=== PATIENT | female | born 1945 | race Caucasian/White ===

== ENCOUNTER 2016-10-10 07:02 | Inpatient (IN) | payer OTHER, BC ==
[~2016-10-10] VITALS: Ht 160 cm; Wt 44.0 kg
[~2016-10-10 07:02] MED LIST: ASPIRIN EC325 MG PO
[2016-10-10 08:09] LABS: EOSINOPHIL (%) 0.4 % (0-5); HEMATOCRIT 40.7 % (36.0-46.0); IMMATURE GRANULOCYTE (%) 0.4 % (0.0-0.7); INSTRUMENT ABS NEUTROPHIL CT 6.8 K/uL; LYMPHOCYTE COUNT 1.1 K/uL (1.0-2.8); MCH 26.9 PG (29.0-34.0); MCHC 33.4 G/DL (30.0-36.0); MCV 80.4 FL (83-99); MEAN PLAT.VOLUME 9.4 uM^3 (9.5-12.4); MONOCYTE (%) 6.2 % (3-12); MONOCYTE COUNT 0.5 K/uL (0-0.8); NEUTROPHIL COUNT 6.8 K/uL (1.8-6.4); PLATELET COUNT 409 K/uL (156-360); RBC DIS.WIDTH-CV 13.4 % (11.8-14.6); RBC DIS.WIDTH-SD 39.1 % (39-53); RED BLOOD COUNT 5.06 M/uL (3.80-5.20); WHITE BLOOD COUNT 8.4 K/uL (4.1-10.2)
[2016-10-10 08:50] LABS: ANION GAP 7 MEQ/L (2-14); CHLORIDE 89 MEQ/L (99-109); GFR ESTIMATE (CALCULATED) > 59 mL/min/; GLUCOSE 106 mg/dL (70-99); POTASSIUM 4.5 MEQ/L (3.7-5.4); SAMPLE HEMOLYSIS CHECK 0; SAMPLE ICTERIC CHECK 0; SAMPLE LIPEMIA CHECK 0; SODIUM 125 MEQ/L (136-147); UREA NITROGEN (BUN) 4 mg/dL (9-23)
[2016-10-10 08:51] LABS: TROP-I INTERPRETATION NEGATIVE; TROPONIN-I < 0.01 ng/mL (0.0-0.30)
[2016-10-10] MEDS ORDERED: TYLENOL PM1 CAPLET PO (11:55)
[2016-10-10] MEDS ORDERED: PROAIR HFA8.5 GM IH (11:56)
[2016-10-10 14:05] VITALS: BP 111/52
[2016-10-10 19:42] VITALS: BP 120/58
[2016-10-10 23:35] VITALS: BP 129/64
[2016-10-11 03:26] VITALS: BP 133/65
[2016-10-11 07:27] VITALS: BP 146/66
[2016-10-11 10:11] LABS: ANION GAP 9 MEQ/L (2-14); CHLORIDE 97 MEQ/L (99-109); GFR ESTIMATE (CALCULATED) > 59 mL/min/; GLUCOSE 102 mg/dL (70-99); POTASSIUM 4.2 MEQ/L (3.7-5.4); SAMPLE HEMOLYSIS CHECK 0; SAMPLE ICTERIC CHECK 0; SAMPLE LIPEMIA CHECK 0; SODIUM 134 MEQ/L (136-147); UREA NITROGEN (BUN) 5 mg/dL (9-23)
[2016-10-11 15:36] VITALS: BP 132/60
[2016-10-11 19:52] VITALS: BP 150/65
[2016-10-11 23:28] VITALS: BP 144/64
[2016-10-12 03:17] VITALS: BP 141/68
[2016-10-12 07:27] LABS: HEMATOCRIT 37.9 % (36.0-46.0); MCHC 33.2 G/DL (30.0-36.0); MCV 81.3 FL (83-99); MEAN PLAT.VOLUME 10.2 uM^3 (9.5-12.4); PLATELET COUNT 381 K/uL (156-360); RBC DIS.WIDTH-CV 14.1 % (11.8-14.6); RBC DIS.WIDTH-SD 41.2 % (39-53); RED BLOOD COUNT 4.66 M/uL (3.80-5.20); WHITE BLOOD COUNT 8.6 K/uL (4.1-10.2)
[2016-10-12 07:42] LABS: ANION GAP 9 MEQ/L (2-14); CHLORIDE 100 MEQ/L (99-109); GFR ESTIMATE (CALCULATED) > 59 mL/min/; GLUCOSE 91 mg/dL (70-99); POTASSIUM 4.3 MEQ/L (3.7-5.4); SAMPLE HEMOLYSIS CHECK 0; SAMPLE ICTERIC CHECK 0; SAMPLE LIPEMIA CHECK 0; SODIUM 134 MEQ/L (136-147); UREA NITROGEN (BUN) 6 mg/dL (9-23)
[2016-10-12 07:47] VITALS: BP 120/58
[2016-10-12 07:52] VITALS: BP 120/58
[2016-10-12 11:03] VITALS: BP 119/58
[2016-10-12 15:11] VITALS: BP 136/60
[2016-10-12 20:00] VITALS: BP 139/63
[2016-10-13] VITALS (7 sets, daily range): BP systolic 119–146; BP diastolic 55–69
[2016-10-13 07:20] LABS: HEMATOCRIT 38.9 % (36.0-46.0); MCH 26.4 PG (29.0-34.0); MCHC 32.4 G/DL (30.0-36.0); MCV 81.6 FL (83-99); MEAN PLAT.VOLUME 9.8 uM^3 (9.5-12.4); PLATELET COUNT 374 K/uL (156-360); RBC DIS.WIDTH-SD 41.4 % (39-53); RED BLOOD COUNT 4.77 M/uL (3.80-5.20); WHITE BLOOD COUNT 7.7 K/uL (4.1-10.2)
[2016-10-13 07:44] LABS: ANION GAP 7 MEQ/L (2-14); CHLORIDE 98 MEQ/L (99-109); GFR ESTIMATE (CALCULATED) > 59 mL/min/; GLUCOSE 86 mg/dL (70-99); POTASSIUM 4.4 MEQ/L (3.7-5.4); SAMPLE HEMOLYSIS CHECK 0; SAMPLE ICTERIC CHECK 0; SAMPLE LIPEMIA CHECK 0; SODIUM 134 MEQ/L (136-147); UREA NITROGEN (BUN) 6 mg/dL (9-23)
[2016-10-14 03:45] VITALS: BP 140/63
[2016-10-14 05:54] LABS: ANION GAP 6 MEQ/L (2-14); CHLORIDE 100 MEQ/L (99-109); GFR ESTIMATE (CALCULATED) > 59 mL/min/; GLUCOSE 101 mg/dL (70-99); POTASSIUM 4.1 MEQ/L (3.7-5.4); SAMPLE HEMOLYSIS CHECK 0; SAMPLE ICTERIC CHECK 0; SAMPLE LIPEMIA CHECK 0; SODIUM 133 MEQ/L (136-147); UREA NITROGEN (BUN) 6 mg/dL (9-23)
[2016-10-14 07:56] VITALS: BP 130/59
[2016-10-14] MEDS ORDERED: SPIRIVA RESPIMAT4 GM IH (10:54)
[2016-10-14] MEDS ORDERED: ADVAIR HFA120 INHALA IH (10:54)
[2016-10-14] MEDS ORDERED: AMOX TR-K CLV1 EAC4 PO (10:54)
[2016-10-14] MEDS ORDERED: NICOTINE PATCH1 EAC2 TD (10:54)
[2016-10-14 11:49] VITALS: BP 123/70
[2016-10-14 15:00] VITALS: BP 128/68
== END 2016-10-14 15:57 | disposition home or self-care (01) | DRG 180 ==
LOC: EME 07:02 → 5SOUTH 11:45 → EDOF 11:45 → 5SOUTH 13:23
PROVIDERS: Emergency Medicine; Family Medicine; Hospitalist
DX: C34.92 Malignant neoplasm of unspecified part of left bronchus or lung (principal); J18.9 Pneumonia, unspecified organism; J96.10 Chronic respiratory failure, unspecified whether with hypoxia or hypercapnia; J44.1 Chronic obstructive pulmonary disease with (acute) exacerbation; R64 Cachexia; R59.0 Localized enlarged lymph nodes; R91.8 Other nonspecific abnormal finding of lung field; R91.1 Solitary pulmonary nodule; R05 Cough; F17.200 Nicotine dependence, unspecified, uncomplicated; G47.00 Insomnia, unspecified; Z68.1 Body mass index [BMI] 19.9 or less, adult; Z88.2 Allergy status to sulfonamides; Z80.1 Family history of malignant neoplasm of trachea, bronchus and lung
CPT/HCPCS: 71020; 71275; 80048; 80048 91; 83880; 83930; 84484; 85025; 85027; 87040; 87070; 87205; 93005; 94640; 94640 76; 94760; 94799; 99202; 99281; 99285; J0456; J0696; J1650; J2543; J7030; J7050

== ENCOUNTER → 2016-11-21 | Outpatient (CLI) | payer OTHER, BC ==
[~2016-11-21] MED LIST changes: +ADVAIR HFA120 INHALA IH; +AMOX TR-K CLV1 EAC4 PO; +NICOTINE PATCH1 EAC2 TD; +PROAIR HFA8.5 GM IH; +SPIRIVA RESPIMAT4 GM IH; +TYLENOL PM1 CAPLET PO
[2016-11-21 09:16] LABS: HEMATOCRIT 43.2 % (36.0-46.0); MCH 26.5 PG (29.0-34.0); MCHC 32.2 G/DL (30.0-36.0); MCV 82.4 FL (83-99); MEAN PLAT.VOLUME 9.6 uM^3 (9.5-12.4); PLATELET COUNT 343 K/uL (156-360); RBC DIS.WIDTH-CV 13.8 % (11.8-14.6); RBC DIS.WIDTH-SD 41.4 % (39-53); RED BLOOD COUNT 5.24 M/uL (3.80-5.20)
[2016-11-21 09:31] LABS: PROTHROMBIN TIME 10.5 (9.2-11.2); PTT 31.3 (25-32)
== END | disposition home or self-care (01) ==
LOC: OPR 08:37 → EDSTATUS 09:00 → OPR 09:00
PROVIDERS: Radiology Diagnostic Radiology
DX: C34.32 Malignant neoplasm of lower lobe, left bronchus or lung (principal); J44.9 Chronic obstructive pulmonary disease, unspecified; F17.210 Nicotine dependence, cigarettes, uncomplicated; Z82.5 Family history of asthma and other chronic lower respiratory diseases; Z80.49 Family history of malignant neoplasm of other genital organs; Z80.8 Family history of malignant neoplasm of other organs or systems; Z82.49 Family history of ischemic heart disease and other diseases of the circulatory system; Z79.82 Long term (current) use of aspirin
CPT/HCPCS: 71010; 77012; 85027; 85610; 85730; 88305; 88341 TC; 88342 TC; J3010